=== PATIENT | female | born 1960 | race Caucasian/White ===

== ENCOUNTER 2018-02-06 11:55 | Emergency (ER) | payer BC ==
[~2018-02-06] VITALS: Ht 157.5 cm; Wt 81.7 kg
[~2018-02-06 11:55] MED LIST: ALBU90OI INH; ALBUIS IH; AMOX1XR PO; AMOX500 PO; AZIT250 PO; AZIT500 PO; CELE200 PO; CLON.1 PO; CODGUAEL PO; DOXY100 PO; DULO60 PO; FLUT.05NI; GUAPHELA PO; HYDACE5 PO; HYDACE7.5 PO; HYDCHLSU PO; LEVFLO500 PO; OXYACE5T PO; OXYM.05NI; PRED10 PO; PRED20 PO; PROG100 PO; PROGESTER; PSEU30; ROPI1 PO; SIMV5 PO; SUDAFED PE PO; SULTRISS PO; TRAZ50; [UNRECOGNIZED DRUG - OTHER]; [UNRECOGNIZED DRUG - OTHER] PO; [UNRECOGNIZED DRUG - REMARK]
[2018-02-06] MEDS ORDERED: VENL37.5ER PO (12:16)
[2018-02-06] MEDS ORDERED: Simvastatin20 MG PO (12:16)
[2018-02-06] MEDS ORDERED: HYDR1TAB94 PO (12:33)
== END 2018-02-06 12:57 | disposition home or self-care (01) ==
LOC: ER 11:55
DX: M65.311 Trigger thumb, right thumb (principal); Z88.1 Allergy status to other antibiotic agents; Z79.899 Other long term (current) drug therapy; F17.210 Nicotine dependence, cigarettes, uncomplicated
CPT/HCPCS: 99282

== ENCOUNTER → 2023-02-11 | Outpatient (CLI) | payer BC ==
[~2023-02-11] MED LIST changes: +HYDR1TAB94 PO; +Simvastatin20 MG PO; +VENL37.5ER PO
[2023-02-11 15:55] LABS: Microalb/Creat Ratio UR, Rand 7.5 mg/g (0.000-30.000); Microalbumin, Random Urine 5.55 mg/L (0.000-20.000)
== END ==
LOC: LAB 12:00 → LAB SHORT 12:00
PROVIDERS: Hospitalist
DX: E11.69 Type 2 diabetes mellitus with other specified complication (principal)
CPT/HCPCS: 82043; 82570

== ENCOUNTER 2024-03-19 08:43 | Inpatient (IN) | payer BC ==
[~2024-03-19] VITALS: Ht 162.6 cm; Wt 81.5 kg
[2024-03-19] MEDS ORDERED: NS 1,000 ML IV SCH (09:05)
[2024-03-19] MEDS ORDERED: Prinivil10 MG PO (09:19)
[2024-03-19] MEDS ORDERED: CLON.2 PO (09:19)
[2024-03-19] MEDS ORDERED: EFFEXOR XR37.5 MG PO (09:19)
[2024-03-19] MEDS ORDERED: PROG100 PO (09:20)
[2024-03-19 09:24] LABS: BASOPHILS ABSOLUTE AUTO 0.06 K/mm3 (0.00-0.23); BASOPHILS PERCENT AUTO 0 % (0-2); EOSINOPHILS ABSOLUTE AUTO 0.16 K/mm3 (0.00-0.68); EOSINOPHILS PERCENT AUTO 1 % (0-6); Hematocrit 32.4 % (33.0-51.0); Hemoglobin 11.1 g/dL (11.5-16.0); IMMATURE GRAN ABSOLUTE AUTO 0.13 K/mm3 (0.00-0.10); IMMATURE GRAN PERCENT AUTO 1 % (0-1); LYMPHOCYTES ABSOLUTE AUTO 1.81 K/mm3 (0.84-5.20); LYMPHOCYTES PERCENT AUTO 13 % (21-46); MONOCYTES ABSOLUTE AUTO 0.62 K/mm3 (0.16-1.47); MONOCYTES PERCENT AUTO 4 % (4-13); Mean Corpuscular HGB 29.9 pg (26.0-34.0); Mean Corpuscular HGB Conc 34.3 g/dL (31.5-36.5); Mean Corpuscular Volume 87 fL (80-100); Mean Platelet Volume 8.9 fL (9.1-12.4); NEUTROPHILS ABSOLUTE AUTO 11.56 K/mm3 (1.96-9.15); NEUTROPHILS PERCENT AUTO 81 % (41-73); Platelet Count 763 K/mm3 (150-400); RDW Coefficient Variation 15.3 % (11.7-14.2); RDW Standard Deviation 48.9 fL (35.1-46.3); Red Blood Cell Count 3.71 M/mm3 (3.80-5.20); White Blood Cell Count 14.34 K/mm3 (4.00-11.30)
[2024-03-19] MEDS ORDERED: CefTRIAXone Sodium 1,000 MG in NS 100 ML IV ONE (09:40)
[2024-03-19] MEDS ORDERED: Azithromycin 500 MG in NS 250 ML IV ONE (09:40)
[2024-03-19 09:48] LABS: Albumin, Blood 1.8 g/dL (3.4-5.0); Albumin/Globulin Ratio 0.3 (0.8-1.8); Bilirubin, Total 0.4 mg/dL (0.1-1.0); Bun/Creatinine Ratio 24.3 (12.0-20.0); Calcium, Blood 9.2 mg/dL (8.5-10.1); Creatinine, Blood 0.62 mg/dL (0.40-1.00); Globulin, Blood 5.3 g/dL (2.2-4.0); Potassium, Blood 4.1 mmol/L (3.5-5.5); Total Protein, Blood 7.1 g/dL (6.4-8.2)
[2024-03-19] MEDS ORDERED: FLU VACC TS2024-25(6MOS UP)/PF 45 MCG/0.5 ML SYRINGE IM ONE (10:20)
[2024-03-19] MEDS ORDERED: Acetaminophen 325 MG TABLET PO PRN (10:20)
[2024-03-19 10:25] LABS: Adenovirus Not Detected (NOT DETECT); Bordetella pertussis Not Detected (NOT DETECT); Chlamydophila pneumoniae Not Detected (NOT DETECT); Coronavirus 229E Not Detected (NOT DETECT); Coronavirus HKU1 Not Detected (NOT DETECT); Coronavirus NL63 Not Detected (NOT DETECT); Coronavirus OC43 Not Detected (NOT DETECT); Human Metapneumovirus Not Detected (NOT DETECT); Human Rhinovirus/Enterovirus Not Detected (NOT DETECT); Influenza A/2009-H1 Not Detected (NOT DETECT); Influenza A/H1 Not Detected (NOT DETECT); Influenza A/H3 Not Detected (NOT DETECT); Influenza B Not Detected (NOT DETECT); Mycoplasma pneumoniae Not Detected (NOT DETECT); Parainfluenza Virus 1 Not Detected (NOT DETECT); Parainfluenza Virus 2 Not Detected (NOT DETECT); Parainfluenza Virus 3 Not Detected (NOT DETECT); Parainfluenza Virus 4 Not Detected (NOT DETECT); Respiratory Syncytial Virus Not Detected (NOT DETECT); SARS-Cov-2 (COVID-19), BioFire Not Detected (NOT DETECT)
[2024-03-19] MEDS ORDERED: Dextromethorphan Polistirix 30 MG/5 ML 5ML Oral Syringe PO PRN (11:05)
[2024-03-19] MEDS ORDERED: Ipratropium/Albuterol SulF 2.5-0.5MG/3 ML Amp INH SCH (11:10)
[2024-03-19] MEDS ORDERED: Nicotine 21 MG PATCH TOP SCH (12:00)
[2024-03-19] MEDS ORDERED: Piperacillin/Tazobactam Sod 4.5 GM in NS 100 ML IV SCH (12:00)
[2024-03-19 13:44] VITALS: BP 112/56
[2024-03-19] MEDS ORDERED: Vancomycin HCL 1,750 MG in NS 500 ML IV SCH (16:00)
[2024-03-19 16:09] VITALS: BP 111/61
[2024-03-19 16:24] LABS: Acinetobacter baumannii DNA Not Detected copy/mL (NOT DETECT); Adenovirus DNA Not Detected (NOT DETECT); Chlamydia pneumonia Not Detected (NOT DETECT); Enterobacter cloacae DNA Not Detected copy/mL (NOT DETECT); Escherichia coli DNA Not Detected copy/mL (NOT DETECT); Haemophilus influenzae DNA Not Detected copy/mL (NOT DETECT); Human Coronavirus RNA Not Detected (NOT DETECT); Human Metapneumovirus RNA Not Detected (NOT DETECT); Klebsiella aerogenes DNA Not Detected copy/mL (NOT DETECT); Klebsiella oxytoca DNA Not Detected copy/mL (NOT DETECT); Klebsiella pneumoniae DNA Not Detected copy/mL (NOT DETECT); Legionella pneumophila Not Detected (NOT DETECT); Moraxella catarrhalis DNA Not Detected copy/mL (NOT DETECT); Mycoplasma pneumoniae Not Detected (NOT DETECT); Proteus sp DNA Not Detected copy/mL (NOT DETECT); Pseudomonas aeruginosa DNA Not Detected copy/mL (NOT DETECT); Serratia marcescens DNA Not Detected copy/mL (NOT DETECT); Staphylococcus aureus DNA Not Detected copy/mL (NOT DETECT); Streptococcus agalactiae DNA Not Detected copy/mL (NOT DETECT); Streptococcus pneumoniae DNA Not Detected copy/mL (NOT DETECT); Streptococcus pyogenes DNA Not Detected copy/mL (NOT DETECT)
[2024-03-19 16:25] LABS: Influenza virus A RNA Not Detected (NOT DETECT); Influenza virus B RNA Not Detected (NOT DETECT); Parainfluenza virus RNA Not Detected (NOT DETECT); Respiratory syncytial Vir RNA Not Detected (NOT DETECT); Rhinovirus+Enterovirus RNA Not Detected (NOT DETECT)
[2024-03-19] MEDS ORDERED: NS 250 ML IV PRN (19:55)
[2024-03-19 20:34] VITALS: BP 124/58
[2024-03-19] MEDS ORDERED: Lactobacil 2-S.Thermo-Bifido 1 1 Cap PO SCH (21:00)
[2024-03-19] MEDS ORDERED: Progesterone, Micronized 100 MG Cap PO SCH (21:00)
[2024-03-20] MEDS ORDERED: Vancomycin HCL 1,250 MG in NS 250 ML IV SCH (04:00)
[2024-03-20 04:22] VITALS: BP 144/73
[2024-03-20 04:54] LABS: BASOPHILS ABSOLUTE AUTO 0.08 K/mm3 (0.00-0.23); BASOPHILS PERCENT AUTO 1 % (0-2); EOSINOPHILS ABSOLUTE AUTO 0.13 K/mm3 (0.00-0.68); EOSINOPHILS PERCENT AUTO 1 % (0-6); Hematocrit 30.7 % (33.0-51.0); Hemoglobin 10.1 g/dL (11.5-16.0); IMMATURE GRAN ABSOLUTE AUTO 0.07 K/mm3 (0.00-0.10); IMMATURE GRAN PERCENT AUTO 1 % (0-1); LYMPHOCYTES ABSOLUTE AUTO 1.89 K/mm3 (0.84-5.20); LYMPHOCYTES PERCENT AUTO 19 % (21-46); MONOCYTES ABSOLUTE AUTO 0.54 K/mm3 (0.16-1.47); MONOCYTES PERCENT AUTO 5 % (4-13); Mean Corpuscular HGB 29.1 pg (26.0-34.0); Mean Corpuscular HGB Conc 32.9 g/dL (31.5-36.5); Mean Corpuscular Volume 89 fL (80-100); Mean Platelet Volume 8.6 fL (9.1-12.4); NEUTROPHILS ABSOLUTE AUTO 7.46 K/mm3 (1.96-9.15); NEUTROPHILS PERCENT AUTO 73 % (41-73); Platelet Count 718 K/mm3 (150-400); RDW Coefficient Variation 15.4 % (11.7-14.2); RDW Standard Deviation 50.2 fL (35.1-46.3); Red Blood Cell Count 3.47 M/mm3 (3.80-5.20); White Blood Cell Count 10.17 K/mm3 (4.00-11.30)
[2024-03-20 05:39] LABS: Albumin, Blood 1.6 g/dL (3.4-5.0); Albumin/Globulin Ratio 0.3 (0.8-1.8); Bilirubin, Total 0.3 mg/dL (0.1-1.0); Bun/Creatinine Ratio 16.8 (12.0-20.0); Calcium, Blood 8.5 mg/dL (8.5-10.1); Creatinine, Blood 0.77 mg/dL (0.40-1.00); Globulin, Blood 4.7 g/dL (2.2-4.0); Potassium, Blood 4.1 mmol/L (3.5-5.5); Total Protein, Blood 6.3 g/dL (6.4-8.2)
[2024-03-20 07:25] VITALS: BP 140/80
--- NOTE | 2024-03-20 07:29 | NUR ---
SHIFT SUMMARY NOC PT A/O X 4. PLEASANT AND COOPERATIVE WITH CARE. VSS. BP STILL ON SOFTER SIDE SO HOME CATAPRES STILL NOT ORDERED UNTIL PT START HAVING CONSITENT SYTOLIC BP >140. HOME PROGESTERONE ORDERED EVERY OTHER DAY FOR HOT FLASHES. PT STARTED ON VANCOMYCIN AND ZOSYN TO TX RUL PNA. PT HAS HARSH BARKING COUGH AND DOSE OF DELSYM GIVEN. PT ON TELE SINUS RHYTHM IN 80'S-90'S. PT CURRENTLY RESTING WITH BED IN LOWEST POSITION, AND CALL LIGHT WITHIN REACH.
[2024-03-20] MEDS ORDERED: CloNIDine HCl 0.2 MG Tab PO SCH (09:00)
[2024-03-20] MEDS ORDERED: Venlafaxine HCl 37.5 MG CapCR PO SCH (09:00)
[2024-03-20] MEDS ORDERED: Progesterone, Micronized 100 MG Cap PO SCH (09:00)
[2024-03-20] MEDS ORDERED: Lisinopril 10 MG Tab PO SCH (09:00)
[2024-03-20] MEDS ORDERED: Atorvastatin 10 MG Tab PO SCH (09:00)
[2024-03-20] MEDS ORDERED: Enoxaparin 40 MG/0.4 ML SYR SC SCH (09:00)
[2024-03-20 15:19] VITALS: BP 108/69
--- NOTE | 2024-03-20 17:41 | NUR ---
VSS, A-Ox4, denies SOB, denies any pain, ambulates independently, on RA, on Airborne precautions for TB rule out. Lung diminished, heart regular, bowel sounds normative. Pt can make needs known, call benjamin in hand, bed in lowest position.
[2024-03-20 19:27] VITALS: BP 120/68
[2024-03-20] MEDS ORDERED: Calcium Carbonate 500 MG Tab Chew PO PRN (23:55)
[2024-03-21 03:20] VITALS: BP 128/82
[2024-03-21 03:31] LABS: BASOPHILS ABSOLUTE AUTO 0.09 K/mm3 (0.00-0.23); BASOPHILS PERCENT AUTO 1 % (0-2); EOSINOPHILS PERCENT AUTO 2 % (0-6); Hematocrit 28.9 % (33.0-51.0); Hemoglobin 9.5 g/dL (11.5-16.0); IMMATURE GRAN ABSOLUTE AUTO 0.05 K/mm3 (0.00-0.10); IMMATURE GRAN PERCENT AUTO 1 % (0-1); LYMPHOCYTES ABSOLUTE AUTO 1.73 K/mm3 (0.84-5.20); LYMPHOCYTES PERCENT AUTO 18 % (21-46); MONOCYTES ABSOLUTE AUTO 0.47 K/mm3 (0.16-1.47); MONOCYTES PERCENT AUTO 5 % (4-13); Mean Corpuscular HGB 29.1 pg (26.0-34.0); Mean Corpuscular HGB Conc 32.9 g/dL (31.5-36.5); Mean Corpuscular Volume 88 fL (80-100); Mean Platelet Volume 8.2 fL (9.1-12.4); NEUTROPHILS PERCENT AUTO 74 % (41-73); Platelet Count 703 K/mm3 (150-400); RDW Coefficient Variation 15.5 % (11.7-14.2); RDW Standard Deviation 50.3 fL (35.1-46.3); Red Blood Cell Count 3.27 M/mm3 (3.80-5.20); White Blood Cell Count 9.64 K/mm3 (4.00-11.30)
[2024-03-21 03:56] LABS: Albumin, Blood 1.7 g/dL (3.4-5.0); Albumin/Globulin Ratio 0.4 (0.8-1.8); Bilirubin, Total 0.2 mg/dL (0.1-1.0); Bun/Creatinine Ratio 18.8 (12.0-20.0); Creatinine, Blood 0.85 mg/dL (0.40-1.00); Globulin, Blood 4.5 g/dL (2.2-4.0); Potassium, Blood 4.4 mmol/L (3.5-5.5); Total Protein, Blood 6.2 g/dL (6.4-8.2)
[2024-03-21 03:58] LABS: Vancomycin, Trough 17.2 ug/mL (5.0-10.0)
--- NOTE | 2024-03-21 06:25 | NUR ---
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 NO ACUTE CHANGES. PT CONTINUES TO C/O OF PERSISTENT COUGHING UNTIL VOMITING. GAVE PT PRN COUGH SYRUP. PT REPORTS A GENERAL SENSE OF STARTING TO FEEL BETTER. PT ABLE TO MAKE NEEDS KNOWN. CALL LIGHT IN REACH.
[2024-03-21 07:29] VITALS: BP 122/77
[2024-03-21] MEDS ORDERED: Dextromethorphan Polistirix 30 MG/5 ML 5ML Oral Syringe PO PRN (08:40)
--- NOTE | 2024-03-21 16:30 | NUR ---
SHIFT SUMMARY PT A&OX4, COOPERATIVE, CALL LIGHT WITHIN REACH. AMBULATE INDEPENDENTLY WITHIN ROOM. IN NEG PRESSURE ROOM DUE TO TUBERCUCLOSIS RULE OUT, HAVE NOT GOTTEN LAB RESULTS YET. ISO STARTED 03/20/24. TOLERATING ANTIBIOTICS WELL, AND COOPERATIVE WITH SPECIMENS COLLECTED. ABLE TO MAKE NEEDS KNOWN. CALL LIGHT WITHIN REACH.
[2024-03-21 17:13] LABS: HIV 1,2 COMBO ANTIGEN/ANTIBODY Negative (Negative)
[2024-03-21 19:58] VITALS: BP 133/78
[2024-03-22 04:56] VITALS: BP 115/71
[2024-03-22 05:45] LABS: BASOPHILS ABSOLUTE AUTO 0.12 K/mm3 (0.00-0.23); BASOPHILS PERCENT AUTO 2 % (0-2); EOSINOPHILS ABSOLUTE AUTO 0.25 K/mm3 (0.00-0.68); EOSINOPHILS PERCENT AUTO 3 % (0-6); Hematocrit 28.6 % (33.0-51.0); Hemoglobin 9.4 g/dL (11.5-16.0); IMMATURE GRAN ABSOLUTE AUTO 0.03 K/mm3 (0.00-0.10); IMMATURE GRAN PERCENT AUTO 0 % (0-1); LYMPHOCYTES PERCENT AUTO 23 % (21-46); MONOCYTES ABSOLUTE AUTO 0.48 K/mm3 (0.16-1.47); MONOCYTES PERCENT AUTO 6 % (4-13); Mean Corpuscular HGB 28.9 pg (26.0-34.0); Mean Corpuscular HGB Conc 32.9 g/dL (31.5-36.5); Mean Corpuscular Volume 88 fL (80-100); Mean Platelet Volume 8.2 fL (9.1-12.4); NEUTROPHILS PERCENT AUTO 66 % (41-73); Platelet Count 704 K/mm3 (150-400); RDW Coefficient Variation 15.4 % (11.7-14.2); RDW Standard Deviation 49.6 fL (35.1-46.3); Red Blood Cell Count 3.25 M/mm3 (3.80-5.20); White Blood Cell Count 7.98 K/mm3 (4.00-11.30)
[2024-03-22 06:30] LABS: Albumin/Globulin Ratio 0.4 (0.8-1.8); Bilirubin, Total 0.3 mg/dL (0.1-1.0); Bun/Creatinine Ratio 13.7 (12.0-20.0); Calcium, Blood 9.2 mg/dL (8.5-10.1); Creatinine, Blood 0.88 mg/dL (0.40-1.00); Globulin, Blood 4.5 g/dL (2.2-4.0); Potassium, Blood 4.4 mmol/L (3.5-5.5); Total Protein, Blood 6.5 g/dL (6.4-8.2)
--- NOTE | 2024-03-22 06:40 | NUR ---
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 ABLE TO MAKE NEEDS KNOWN. NO ACUTE CHANGES. NEW ROGERS POWER GLIDE PLACED. PREVIOUS LEFT FORARM IV SITE WITH REDNESS, WARMTH AND MILD TENDERNESS. PT DECLINED ICE PACK THIS AM; EDUCATED PT ON S/S TO REPORT. ADMINISTERED DOSE OF COUGH SYRUP. IV ABOX GIVEN PER AUG. CALL LIGHT ACCESSIBLE.
[2024-03-22 08:06] VITALS: BP 112/76
[2024-03-22 09:56] VITALS: BP 135/73
[2024-03-22] MEDS ORDERED: ALBU90OI INH (13:35)
[2024-03-22] MEDS ORDERED: DEXT30SU PO (13:35)
[2024-03-22] MEDS ORDERED: VISBIOME 112.51 EACH PO (13:36)
[2024-03-22] MEDS ORDERED: NICO21TP TOP (13:36)
[2024-03-22] MEDS ORDERED: IPRAT-ALBUT 0.5-3 ML INH (13:36)
[2024-03-22] MEDS ORDERED: AMOCLA875 PO (13:37)
--- NOTE | 2024-03-22 14:08 | NUR ---
DISCHARGE NOTE- PT WAS GIVEN VERBAL AND WRITTEN DISCHARGE INSTRUCTIONS AND ACKNOWLEDGED UNDERSTANDING OF THEM. PT PG DC'D PRIOR TO DISCHARGE PT ESCORTED OUT VIA WC BY STAFF. NO S&S OF DISTRESS NOTED.
[2024-03-22 18:46] LABS: QUANTIFERON MITOGEN MINUS NIL 0.28 IU/mL; QUANTIFERON NIL 0.01 IU/mL; QUANTIFERON PLUS TB1 MINUS NIL 0.03 IU/mL (<=0.34); QUANTIFERON PLUS TB2 MINUS NIL 0.01 IU/mL (<=0.34)
== END 2024-03-22 14:33 | disposition home or self-care (01) | DRG 178 ==
LOC: ER 08:43 → MEDS 08:44
PROVIDERS: Emergency Medicine; Registered Nurse; Student in an Organized Health Care Education/Training Program; ADMIT Hospitalist
DX: J15.69 Pneumonia due to other Gram-negative bacteria (principal); J44.0 Chronic obstructive pulmonary disease with (acute) lower respiratory infection; F17.210 Nicotine dependence, cigarettes, uncomplicated; E78.5 Hyperlipidemia, unspecified; I10 Essential (primary) hypertension; Z90.710 Acquired absence of both cervix and uterus; Z79.51 Long term (current) use of inhaled steroids; Z98.890 Other specified postprocedural states; Z79.899 Other long term (current) drug therapy
CPT/HCPCS: 0202U; 36415; 71045; 71250; 80053; 80202; 83605; 85025; 86480; 87040; 87070; 87205; 87389; 87633; 94640; 94664; 94760; 96365; 96366; 96367; 96372; 96376; 99285-25; A9270; G0378; J0456; J0696; J1650; J2543; J3370; J7030; J7040; J7050

== ENCOUNTER 2024-07-22 07:21 | Day surgery (SDC) | payer BC ==
[~2024-07-22] VITALS: Ht 154.9 cm; Wt 82.4 kg
[~2024-07-22 07:21] MED LIST changes: +AMOCLA875 PO; +Aspir 8181 MG PO; +CLON.2 PO; +DEXT30SU PO; +EFFEXOR XR37.5 MG PO; +IPRAT-ALBUT 0.5-3 ML INH; +Lactated Ringer's 1,000 ML IV SCH; +NICO21TP TOP; +Prinivil10 MG PO; +STIOLTO RESPIMAT4 G1 INH; +VISBIOME 112.51 EACH PO; +propofoL 50 ML IV ONE
[2024-07-22] MEDS ORDERED: ALBU90OI INH (07:56)
[2024-07-22] MEDS ORDERED: SYMBICORT 16010.2 GM INH (07:57)
[2024-07-22] MEDS ORDERED: SYMBICORT 80-10.2 GM INH (07:57)
[2024-07-22 08:14] VITALS: BP 117/69
--- NOTE | 2024-07-22 09:14 | NUR ---
07/22/24 0914 Daria Davalos History, Chart, Medications and Allergies reviewed before start of procedure.MONITOR INTACT WITH CONTINUOUS PULSE OXIMETRY, CONTINUOUS END TITAL CO2, AND INTERMITTENT BLOOD PRESSURE.
[2024-07-22 09:51] VITALS: BP 99/60
[2024-07-22 10:00] VITALS: BP 92/52
--- NOTE | 2024-07-22 10:09 | NUR ---
Patient up to Ambulate independently. Gait steady. Discharge instructions reviewed with patient. Patient verbalizes understanding. Copy given to patient to take home. Patient States Post-Procedure ride home has been arranged. Discharged via wheelchair to private car for ride home.
== END 2024-07-22 10:07 | disposition home or self-care (01) ==
LOC: ORSCMMR 07:21 → ORD 09:00 → ORSCMMR 09:15 → ORSCSDS 08-05 15:30 → ORD 08-05 15:30 → ORSCSDS 11-03 11:30
PROVIDERS: Specialist
PROC: 0DBM8ZX Excision of Descending Colon, Via Natural or Artificial Opening Endoscopic, Diagnostic (ICD-10-PCS; principal; 2024-07-22 09:15)
DX: Z12.11 Encounter for screening for malignant neoplasm of colon (principal); R19.5 Other fecal abnormalities; D12.4 Benign neoplasm of descending colon; G47.33 Obstructive sleep apnea (adult) (pediatric); I10 Essential (primary) hypertension; K59.00 Constipation, unspecified; K21.9 Gastro-esophageal reflux disease without esophagitis; E78.5 Hyperlipidemia, unspecified; J44.9 Chronic obstructive pulmonary disease, unspecified; F32.A Depression, unspecified; Z79.82 Long term (current) use of aspirin; Z87.891 Personal history of nicotine dependence; E66.9 Obesity, unspecified; Z68.34 Body mass index [BMI] 34.0-34.9, adult; Z79.899 Other long term (current) drug therapy
CPT/HCPCS: 82947; 88305; J2704; J7120

== ENCOUNTER → 2024-12-29 | Outpatient (CLI) | payer BC ==
[~2024-12-29] MED LIST changes: -Lactated Ringer's 1,000 ML IV SCH; +SYMBICORT 16010.2 GM INH; +SYMBICORT 80-10.2 GM INH; -propofoL 50 ML IV ONE
[2024-12-29 19:26] LABS: Creatinine, Urine Random 25.8 mg/dL (27.00-270.00)
[2024-12-29 19:50] LABS: Anion Gap 6.0 mmol/L (3-11); Blood Urea Nitrogen 22.0 mg/dL (8-24); CO2, Blood 27.0 mmol/L (21-32); Calcium, Blood 9.6 mg/dL (8.5-10.1); Chloride, Blood 104.0 mmol/L (98-108); Creatinine, Blood 1.12 mg/dL (0.40-1.00); Glucose, Blood 98.0 mg/dL (70-99); Potassium, Blood 4.2 mmol/L (3.5-5.5); Sodium, Blood 133.0 mmol/L (136-145)
[2024-12-29 19:59] LABS: Microalb/Creat Ratio UR, Rand 25.969 mg/g (0.000-30.000); Microalbumin, Random Urine 6.7 mg/L (0.000-20.000)
== END | disposition home or self-care (01) ==
LOC: LAB SHORT 17:33 → LAB 17:33
PROVIDERS: Hospitalist
DX: E11.69 Type 2 diabetes mellitus with other specified complication (principal); I10 Essential (primary) hypertension
CPT/HCPCS: 80048; 82043; 82570